=== PATIENT | male | born 1955 | race Asian ===

== ENCOUNTER 2019-01-24 07:18 | Day surgery (SDC) | payer OTHER ==
[2019-01-24] MEDS: SOD CHLORIDE 0.9% 1,000 ML IV (08:33)
[2019-01-24] MEDS ORDERED: LIDOCAINE 1% (MDV) 20 ML INJ ×2 (09:12)
[2019-01-24] MEDS ORDERED: MIDAZOLAM 1 MG/ML 2 ML INJ (09:12)
[2019-01-24] MEDS ORDERED: FENTAnyl 50 MCG/ML VIAL (09:12)
== END 2019-01-24 15:07 | disposition home or self-care (01) ==
LOC: SDS 07:18
DX: C34.32 Malignant neoplasm of lower lobe, left bronchus or lung (principal); E11.9 Type 2 diabetes mellitus without complications; I10 Essential (primary) hypertension; F17.200 Nicotine dependence, unspecified, uncomplicated
CPT/HCPCS: 32405; 71045; 77012; 82962; 88307; 88313

== ENCOUNTER 2019-02-28 10:46 | Day surgery (SDC) | payer OTHER ==
[2019-02-28] MEDS: SOD CHLORIDE 0.9% 1,000 ML IV (11:41)
[2019-02-28] MEDS ORDERED: CEFAZOLIN 1 GM/50 ML (PMX) 50 ML IVPB (13:06)
[2019-02-28] MEDS ORDERED: LIDOCAINE 1%/EPI (1:100,000) (MDV) 20 ML (13:06)
[2019-02-28] MEDS ORDERED: HEPARIN 1000 UNITS/ML 10 ML INJ (13:06)
[2019-02-28] MEDS ORDERED: POLYMYXIN/BACITRACIN 1L IRRIG (13:07)
[2019-02-28] MEDS ORDERED: MIDAZOLAM 1 MG/ML 2 ML INJ (13:35)
[2019-02-28] MEDS ORDERED: FENTAnyl 50 MCG/ML VIAL (13:35)
== END 2019-02-28 16:30 | disposition home or self-care (01) ==
LOC: SDS 10:46
DX: C34.92 Malignant neoplasm of unspecified part of left bronchus or lung (principal); I10 Essential (primary) hypertension; E11.9 Type 2 diabetes mellitus without complications; F17.200 Nicotine dependence, unspecified, uncomplicated
CPT/HCPCS: 36561; 82962